=== PATIENT | female | born 1970 | race Caucasian/White ===

== ENCOUNTER 2017-11-08 23:26 | Emergency (ER) | payer SELFPAY, MEDICAID | END 2017-11-09 00:20 | disposition left against medical advice (07) | LOC: E/R 23:26 | DX: Z53.21 Procedure and treatment not carried out due to patient leaving prior to being seen by health care provider (principal) ==

== ENCOUNTER 2017-12-03 20:53 | Emergency (ER) | payer MEDICARE, OTHER | END 2017-12-03 21:42 | disposition home or self-care (01) | LOC: FTE 20:53 | DX: Z76.0 Encounter for issue of repeat prescription (principal) | CPT/HCPCS: 99281 ==

== ENCOUNTER 2017-12-16 03:25 | Emergency (ER) | payer MEDICARE, OTHER ==
[2017-12-16] MEDS: HYDROCODONE/APAP (5/325) TAB PO (04:27)
== END 2017-12-16 05:46 | disposition home or self-care (01) ==
LOC: E/R 03:25
DX: S00.83XA Contusion of other part of head, initial encounter (principal); S09.90XA Unspecified injury of head, initial encounter; W18.09XA Striking against other object with subsequent fall, initial encounter; Y92.9 Unspecified place or not applicable
CPT/HCPCS: 70450; 99284-25

== ENCOUNTER 2018-02-04 00:34 | Emergency (ER) | payer MEDICARE, OTHER ==
[2018-02-04] MEDS: ACETAMINOPHEN 325 MG TAB PO (03:20)
[2018-02-04 03:21] LABS: ADD UMIC YES; UR ASCORBIC ACID NEGATIVE (NEGATIVE); UR BACTERIA FEW /HPF (NONE SEEN); UR BILIRUBIN (Dip) NEGATIVE (NEGATIVE); UR BLOOD (Dip) 2+ mg/dL (NEGATIVE); UR CLARITY SLIGHTLY CLOUDY (CLEAR); UR COLOR YELLOW (YELLOW); UR GLUCOSE (Dip) NEGATIVE (NEGATIVE); UR KETONES (Dip) NEGATIVE (NEGATIVE); UR LEUKOCYTE ESTERASE (Dip) NEGATIVE Leu/ul (NEGATIVE); UR MUCUS MODERATE /HPF (NONE SEEN); UR NITRITE (Dip) NEGATIVE (NEGATIVE); UR RBC 7 /HPF (0-5); UR SPECIFIC GRAVITY (Dip) 1.051 (1.003-1.030); UR SQUAMOUS EPITHELIAL CELL FEW /HPF (FEW); UR TOTAL PROTEIN (Dip) 1+ mg/dl (NEGATIVE); UR UROBILINOGEN (Dip) 1+ mg/dL (NEGATIVE); UR WBC 2 /HPF (0-5)
[2018-02-04 03:32] LABS: BARBITURATES Positive (NEGATIVE); BENZODIAZEPINES Negative (NEGATIVE); CANNABINOIDS Negative (NEGATIVE); COCAINE Positive (NEGATIVE); OPIATES Negative (NEGATIVE)
[2018-02-04 04:00] LABS: AMPHETAMINE/METHAMPHETAMINE POSITIVE (NEGATIVE)
== END 2018-02-04 04:43 | disposition home or self-care (01) ==
LOC: FTE 00:34
DX: R51 Headache (principal)
CPT/HCPCS: 80307; 81001; 81025; 99283

== ENCOUNTER 2018-03-01 02:51 | Emergency (ER) | payer SELFPAY, OTHER, MEDICARE | END 2018-03-01 04:25 | disposition left against medical advice (07) | LOC: E/R 02:51 | DX: Z53.21 Procedure and treatment not carried out due to patient leaving prior to being seen by health care provider (principal) ==